=== PATIENT | male | born 1985 | race Caucasian/White ===

== ENCOUNTER 2021-07-30 14:29 | Emergency (ER) | payer OTHER, MEDICAID ==
[~2021-07-30] VITALS: Ht 172.7 cm; Wt 99.8 kg
[2021-07-30 14:50] VITALS: BP_SYST 127
[2021-07-30] MEDS ORDERED: IBUP-1969 PO (16:20)
[2021-07-30] MEDS ORDERED: CYCL10TA24 PO (16:20)
== END 2021-07-30 16:51 | disposition home or self-care (01) ==
LOC: SED 14:29
DX: S16.1XXA Strain of muscle, fascia and tendon at neck level, initial encounter (principal); S76.011A Strain of muscle, fascia and tendon of right hip, initial encounter; S80.01XA Contusion of right knee, initial encounter; F07.81 Postconcussional syndrome; V43.52XA Car driver injured in collision with other type car in traffic accident, initial encounter; Y93.89 Activity, other specified; Y92.89 Other specified places as the place of occurrence of the external cause; Y99.8 Other external cause status
CPT/HCPCS: 70450-TC; 71046-TC; 72125-TC; 73564; 76376; 99284